=== PATIENT | male | born 1985 | race Caucasian/White ===

== ENCOUNTER 2017-10-13 08:25 | Emergency (ER) | payer MEDICAID ==
--- NOTE | 2017-10-13 08:55 | Emergency Department Record ---
History of Present Illness - General Chief Complaint: Arrythmia/Palpitations Stated Complaint: IRRIGULAR HEARTRATE Time Seen by Provider: 10/13/17 08:41 Source: Patient Mode of Arrival: Ambulatory Limitations: No limitations - History of Present Illness Initial Comments: The patient is here due to having irregular heart beats off and on for 4 months. The symptoms only last for seconds and are sporatic and intermittent. They are not precipitated by stress, exertion, or anxiety and there is no pain, SOB, JAZZY, or sweating associated with them. The patient in addition has had slight lightheadedness yesterday and this AM. Both episoded occurred with no warning and lasted a minute or two. There was no pain associated with them and no BOYER, weakness, fever, or vomiting. The patient denies any recent illnesses and denies any medical issues. MD Complaint: Irregular heart beat Onset/Timin -: Month(s) Associated Symptoms: Denies other symptoms - Related Data Home Medications Medication Instructions Recorded Confirmed Last Taken No Home Med [NO HOME MEDS] 10/13/17 10/13/17 Unknown Allergies Allergy/AdvReac Type Severity Reaction Status Date / Time No Known Drug Allergies Allergy Verified 10/13/17 08:29 Travel Screening - Travel/Exposure Within Last 30 Days Have you traveled within the last 30 days?: No - Travel/Exposure Within Last Year Have you traveled outside the [place] in the last year?: No - Additonal Travel Details Have you been exposed to anyone with a communicable illness?: No - Travel Symptoms Symptom Screening: None Review of Systems Constitutional: Denies: Chills, Fever Eyes: Denies: Eye discharge ENT: Denies: Congestion Respiratory: Denies: Cough, Dyspnea Cardiovascular: Denies: Chest pain Past Medical History - SOCIAL HISTORY Smoking Status: Current every day smoker Alcohol Use: Occasional Drug Use: Occasional Drug Use Detail:: Marijuana - RESPIRATORY Hx Respiratory Disorders: No - CARDIOVASCULAR Hx Cardio Disorders: No - NEURO Hx Neuro Disorders: No - GI Hx GI Disorders: No - Hx Genitourinary Disorders: No - ENDOCRINE Hx Endocrine Disorders: No - MUSCULOSKELETAL Hx Musculoskeletal Disorders: No - PSYCH Hx Psych Problems: No - HEMATOLOGY/ONCOLOGY Hx Hematology/Oncology Disorders: No Family Medical History Any Significant Family History?: No Physical Exam - General General Appearance: Alert, Oriented x3, Cooperative, No acute distress - Head Head exam: Atraumatic, Normocephalic, Normal inspection - Eye Eye exam: Normal appearance, PERRL - ENT ENT exam: Normal exam, Mucous membranes moist, Normal external ear exam, Normal orophraynx, TM's normal bilaterally Throat exam: Normal inspection. negative: Tonsillar erythema, Tonsillar exudate - Neck Neck exam: Normal inspection, Full ROM. negative: Tenderness - Respiratory Respiratory exam: Normal lung sounds bilaterally. negative: Respiratory distress - Cardiovascular Cardiovascular Exam: Regular rate, Normal rhythm, Normal heart sounds - GI/Abdominal GI/Abdominal exam: Soft, Normal bowel sounds. negative: Tenderness - Extremities Extremities exam: Normal inspection, Full ROM, Normal capillary refill, Other ( radial pulses 2+ and equal bilaterally.). negative: Tenderness - Back Back exam: Reports: Normal inspection - Neurological Neurological exam: Alert, Normal gait, Oriented X3. negative: Abnormal gait, Altered, Motor sensory deficit Course Vital Signs 10/13/17 08:30 Temperature 97.6 F Pulse Rate 62 Respiratory 20 Rate Blood Pressure 129/71 Pulse Ox 99 - Reevaluation(s) Reevaluation #1: The patient is doing very well at this time. He denies any symptoms or problems. I did discuss the lab results and workup with the patient and did discuss that no cause was found for his symptoms. He is to F/U with his PCP for recheck next week and possibly further testing. 10/13/17 09:45 Medical Decision Making - Data Complexity MDM Data: Labs Ordered and/or Reviewed, X-Ray Ordered and/or Reviewed, EKG Ordered and/or Reviewed - Lab Data Result diagrams: 10/13/17 08:55 10/13/17 08:55 - EKG Data -: EKG Interpreted by Me EKG: No Acute Changes, Normal EKG - Radiology Data Radiology results: Report reviewed (CXR: No acute changes) Disposition Disposition: Discharge Clinical Impression: Heart palpitations Disposition: Home, Self-Care Condition: (2) Stable Instructions: Heart Palpitations (ED) Additional Instructions: Please rest when possible and drink plenty of fluids. Please see your family doctor for recheck next week. Return to the ER for any worsening problems or issues. Please quit smoking. Forms: Patient Portal Access Time of Disposition: 09:45 Quality - Quality Measures Quality Measures: N/A - Blood Pressure Screening View Details: Yes Does Patient Have Any of the Following: No Blood Pressure Classification: Pre-Hypertensive BP Reading Systolic Measurement: 129 Diastolic Measurement: 71 Screening for High Blood Pressure: < Pre-Hypertensive BP, F/U Documented > [ [id number]] Pre-Hypertensive Follow-up Interventions: Referral to alternative/primary care provider.
[2017-10-13 09:06] LABS: BASO % 0.8 % (0-6); EOS % 1.7 % (0-6); GRAN % 64.3 % (47-80); HEMATOCRIT 43.7 % (42.0-52.0); HEMOGLOBIN 14.9 gm/dl (14.0-18.0); LYMPH % 25.6 % (16-45); MEAN CORPUSCULAR HGB CONC 34.1 g/dl (32-36); MEAN PLATELET VOLUME 8.5 fl (7.4-10.4); MONO % 7.6 % (0-9); PLATELET COUNT 314 K/uL (130-400); RED BLOOD COUNT 4.65 M/uL (4.40-5.70); RED CELL DISTRIBUTION WIDTH 12.9 % (11.5-14.5); WHITE BLOOD COUNT W/O DIFF 5.2 K/uL (4.2-12.2)
[2017-10-13 09:18] LABS: BLOOD UREA NITROGEN 29 mg/dL (6-20); CREATININE 0.8 mg/dL (0.7-1.2); EST GLOMERULAR FILTRATION RATE > 60 mL/min; TOTAL PROTEIN 7.5 g/dL (6.6-8.7)
[2017-10-13 09:20] LABS: GLUCOSE,RANDOM 107 mg/dL (74-109)
[2017-10-13 09:23] LABS: ALB/GLOB RATIO 2.1 (1.1-1.8); ALBUMIN 5.1 g/dL (4.0-5.0); ALKALINE PHOSPHATASE 58 U/L (40-129); ALT/SGPT 19 U/L (<41); AST/SGOT 23 U/L (10.0-50.0); CREATINE PHOSPHOKINASE 250 U/L (39-308)
[2017-10-13 09:29] LABS: CKMB 3.5 ng/mL (<6.73)
[2017-10-13 09:35] LABS: THYROID STIMULATING HORMONE 1.38 uIU/mL (0.270-4.20)
--- NOTE | 2017-10-15 12:34 | RADIOLOGY REPORT ---
EXAM: CHEST, TWO VIEWS HISTORY: PALPITATIONS. TECHNIQUE: PA and lateral views of the chest were obtained. Comparison: None. FINDINGS: The heart size is normal. No definite acute infiltrate seen. No pleural effusion or pneumothorax evident. Minor apical pleural thickening bilaterally. IMPRESSION: MINOR APICAL PLEURAL THICKENING BILATERALLY. NO DEFINITE ACUTE INFILTRATE SEEN. JOB NUMBER: [id number] MTDD
== END 2017-10-13 09:57 | disposition home or self-care (01) ==
LOC: ER 08:25
DX: R00.2 Palpitations (principal); R42 Dizziness and giddiness; F17.210 Nicotine dependence, cigarettes, uncomplicated
CPT/HCPCS: 71046; 80053; 82550; 82553; 84443; 84484; 85025; 93005; 93010; 99284